=== PATIENT | female | born 1975 | race Hispanic/Latino ===

== ENCOUNTER 2017-11-09 13:12 | Observation (INO) | payer MEDICAID | END 2017-11-09 14:32 | disposition home or self-care (01) | LOC: EDH 13:12 → LDH 13:35 | PROVIDERS: ADMIT Obstetrics & Gynecology; ATTEND Obstetrics & Gynecology | DX: O99.612 Diseases of the digestive system complicating pregnancy, second trimester (principal); K29.70 Gastritis, unspecified, without bleeding; O09.522 Supervision of elderly multigravida, second trimester; Z3A.24 24 weeks gestation of pregnancy; Z90.49 Acquired absence of other specified parts of digestive tract | CPT/HCPCS: 99285; G0378 ==